=== PATIENT | male | born 1965 | race Caucasian/White ===

== ENCOUNTER → 2019-12-17 09:16 | Outpatient (BNVA) | payer OTHER, SELFPAY | PROVIDERS: Visit Provider Podiatrist Foot & Ankle Surgery | DX: M25.572 Pain in left ankle and joints of left foot (principal); R60.9 Edema, unspecified | CPT/HCPCS: 73610 ==

== ENCOUNTER 2020-06-15 09:22 | Outpatient (CLI) | payer OTHER, SELFPAY ==
--- NOTE | 2020-06-15 09:29 | MR_ITS ---
WS: [id number] MRI left ankle with and without contrast. COMPARISON: 10/08/2019 and 12/17/2019 Multiplanar, multisequence imaging is performed of the LEFT ankle with and without contrast. 2 orthopedic screws are present in the calcaneus. There are additional defects in the talus and dista l fibula from prior screw fixation. Hardware may have been removed. There is increased T2 signal in the calcaneus which is an artifact related to the hardware. There is additional small amount of marro w edema in the anterior calcaneus and the subtalar calcaneus which is probably marrow edema and and n ot artifact. Very small amount of marrow edema in the navicular and intermediate and lateral cuneifor ms. Mild loss of cartilage along the talar dome and at the tibiotalar joint space. No definite osteom yelitis can be confirmed. Significant abnormal appearance over the lateral ankle. There is a large amount of soft tissue thicke shayla with edema and enhancement. Soft tissue edema begins in the distal fibula and extends laterally and posterior to the fibula and peroneus muscle. There is edema and increased thickening of the peron eus muscle. There is a lobulated soft tissue mass which is of increased T2 signal inseparable from th e distal peroneal muscle and tendon sheath. Mass measures 3.2 x 2.7 cm. Lobulated fluid extends into the peroneal tendon sheath. There is moderate diffuse enhancement of this lobulated mass. The peronea l longus tendon sheath is contiguous with this collection. The distal peroneus longus sheath is not e vident. Peroneal brevis appears more normal caliber extending distally. There is an additional bandli ke area tendon extending distal to the fibular tip towards the plantar surface of the foot. There is mixed signal within the very distal tendon there could be some loose bodies. Distal Achilles tendon is normal caliber. No increased signal. Flexor hallucis longus muscle and tend on, flexor digitorum longus and tibialis posterior tendon are all normal course and caliber. Extensor hallucis longus, tibialis anterior and extensor digitorum longus muscle and tendons are normal. MR/MR ankle LT wo/w con [id number] IMPRESSION: 1. Extensive abnormal appearance of the peroneus muscle and tendons and tendo n sheath. 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 2. Lobulated soft tissue mass contiguous with the peroneus longus tendon enhan sukhdeep. Consider ganglion as a possible etiology. Less likely abscess or seroma. 3. Additional calcaneal osteotomy. Additional hardware which is probably been removed in the distal fibula and the talus. 4. Large amount of edema over the posterior lateral ankle. Notified Carlos Ward DPM at 06/15/2020 2:52 PM.
== END 2020-06-15 09:23 | disposition home or self-care (01) ==
LOC: RADWPI 09:26
PROVIDERS: PCP Nurse Practitioner Family; Visit Provider Podiatrist Foot & Ankle Surgery
DX: S90.02XA Contusion of left ankle, initial encounter (principal); S96.912A Strain of unspecified muscle and tendon at ankle and foot level, left foot, initial encounter; X58.XXXA Exposure to other specified factors, initial encounter; R22.42 Localized swelling, mass and lump, left lower limb
CPT/HCPCS: 73723; A9579